=== PATIENT | female | born 1980 | race Caucasian/White ===

== ENCOUNTER 2018-07-25 06:41 | Emergency (ER) | payer OTHER ==
[~2018-07-25] VITALS: Ht 160 cm; Wt 105.2 kg
[~2018-07-25 06:41] MED LIST: ALBU.083IS IH; ALBU90OI6 INH; ALBU90OI61 INH; AMOX500 PO; AMOX875 PO; AZIT250 PO; Augmentin 875-1 EACH PO; CIPR500 PO; CODGUAEL PO; CYCL10 PO; ERYT.5TO OS; FLUT.05NI; Flonase 0.05% N16 GM; GUAPSEER PO; HYDACE5 PO; IBUP200 PO; IBUP600 PO; IBUP800 PO; LISI20 PO; NAPR500 PO; OXYACE5T PO; PENVK500 PO; PRED10 PO; PROM25 PO; PROP10 PO; RXCYCL10 PO; RXTRAM50 PO; SULTRIDS PO; TRAM50 PO
[2018-07-25] MEDS ORDERED: Ocuflox5 ML (07:26)
[2018-07-25] MEDS ORDERED: Hydrocodone-Ap1 EA23 PO (07:26)
[2018-07-25] MEDS ORDERED: HYDR1TAB94 PO (08:08)
[2018-07-25] MEDS ORDERED: Augmentin 875-1 EACH PO (08:08)
[2018-07-25] MEDS ORDERED: Mucinex600 MG PO (08:09)
[2018-07-26] MEDS ORDERED: Cipro500 MG PO (08:01)
== END 2018-07-25 08:36 | disposition home or self-care (01) ==
LOC: ER 06:41
DX: H60.91 Unspecified otitis externa, right ear (principal); H65.92 Unspecified nonsuppurative otitis media, left ear; Z87.891 Personal history of nicotine dependence; Z79.899 Other long term (current) drug therapy; I10 Essential (primary) hypertension; F32.9 Major depressive disorder, single episode, unspecified
CPT/HCPCS: 99282

== ENCOUNTER 2018-07-26 07:18 | Emergency (ER) | payer OTHER ==
[~2018-07-26] VITALS: Ht 160 cm; Wt 105.2 kg
[~2018-07-26 07:18] MED LIST changes: +HYDR1TAB94 PO; +Hydrocodone-Ap1 EA23 PO; +Mucinex600 MG PO; +Ocuflox5 ML
[2018-07-26] MEDS ORDERED: Cipro500 MG PO (08:01)
== END 2018-07-26 08:08 | disposition home or self-care (01) ==
LOC: ER 07:18
DX: H60.93 Unspecified otitis externa, bilateral (principal); R03.0 Elevated blood-pressure reading, without diagnosis of hypertension; Z79.899 Other long term (current) drug therapy; I10 Essential (primary) hypertension; F32.9 Major depressive disorder, single episode, unspecified; Z87.891 Personal history of nicotine dependence
CPT/HCPCS: 99282

== ENCOUNTER → 2023-12-22 | Outpatient (CLI) | payer BC ==
[~2023-12-22] MED LIST changes: +Cipro500 MG PO
== END ==
LOC: LAB 11:29 → LAB SHORT 11:29
DX: N89.8 Other specified noninflammatory disorders of vagina (principal)
CPT/HCPCS: 87070; 87205